=== PATIENT | female | born 1990 | race Caucasian/White ===

== ENCOUNTER 2018-06-27 10:20 | Emergency (ER) | payer OTHER, SELFPAY ==
--- NOTE | 2018-06-27 11:20 | RAD REPORT ---
EXAM DESCRIPTION: RAD - Elbow Left 3 View - 06/27/2018 11:15 am CLINICAL HISTORY: PAIN COMPARISON: No comparisons FINDINGS: Fracture of the left radial neck is seen with anterior and posterior fat pad elevation. No dislocation is seen.
[2018-06-27] MEDS ORDERED: ONDANSETRON 4 MG (ODT) TAB ONE (11:40)
[2018-06-27] MEDS ORDERED: MEPERIDINE HCL 25 MG/0.5 ML ONE (11:40)
--- NOTE | 2018-06-27 11:47 | EDPHYS ---
Physician Documentation [facility] Name: Gwen Daíz Age: 28 yrs Sex: Female : 1990 Arrival Date: 06/27/2018 Time: 10:25 Bed 16 Private MD: None, None ED Physician Víctor Tillman HPI: 06/27 11:14 This 28 yrs old Female presents to ER via Ambulatory with complaints of Arm jr8 Injury. 11:14 The patient or guardian complains of decreased range of motion, injury, pain. The jr8 complaints affect the left elbow. Onset: The symptoms/episode began/occurred acutely, yesterday. Treatment prior to arrival includes: no previous treatment. Modifying factors: The symptoms are alleviated by remaining still, the symptoms are aggravated by movement. Associated signs and symptoms: The patient has no apparent associated signs or symptoms. Severity of symptoms: At their worst the symptoms were moderate, in the emergency department the symptoms are unchanged. The patient has not experienced similar symptoms in the past. The patient has not recently seen a physician. Patient was rough housing with friends last night. Stated that her arm was extended and someone landed on it hyperextending it more. [place] popping sensation. Since then cannot move it well and is in pain . 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 - Social history:: Smoking status: Patient uses tobacco products, denies chronic smoking, but will smoke occasionally. - Ebola Screening: : Patient negative for fever greater than or equal to 101.5 degrees Fahrenheit, and additional compatible Ebola Virus Disease symptoms Patient denies exposure to infectious person Patient denies travel to an Ebola-affected area in the 21 days before illness onset No symptoms or risks identified at this time. ROS: 11:14 Constitutional: Negative for fever, chills, and weight loss. jr8 11:14 MS/extremity: Positive for decreased range of motion, pain, swelling, tenderness, of the left elbow. 11:14 All other systems are negative. Exam: 11:14 Cardiovascular: Regular rate and rhythm with a normal S1 and S2. No gallops, murmurs, jr8 or rubs. Normal PMI, no JVD. No pulse deficits. Respiratory: Lungs have equal breath sounds bilaterally, clear to auscultation and percussion. No rales, rhonchi or wheezes noted. No increased work of breathing, no retractions or nasal flaring. Abdomen/GI: Soft, non-tender, with normal bowel sounds. No distension or tympany. No guarding or rebound. No evidence of tenderness throughout. Back: No spinal tenderness. No costovertebral tenderness. Full range of motion. Skin: Warm, dry with normal turgor. Normal color with no rashes, no lesions, and no evidence of cellulitis. Neuro: Awake and alert, GCS 15, oriented to person, place, time, and situation. Cranial nerves II-XII grossly intact. Motor strength 5/5 in all extremities. Sensory grossly intact. Cerebellar exam normal. Normal gait. 11:14 Musculoskeletal/extremity: Extremities: grossly normal except: noted in the left elbow: decreased ROM, pain, swelling, tenderness, Circulation is intact in all extremities. Sensation intact. Vital Signs: 10:43 BP 122 / 78; Pulse 84; Resp 16; Pulse Ox 100% on R/A; Weight 92.99 kg; Height 5 ft. 5 iw in. (165.10 cm); Pain 7/10; 11:58 BP 120 / 75; Pulse 85; Resp 18; Pulse Ox 100% on R/A; hj 10:43 Body Mass Index 34.11 (92.99 kg, 165.10 cm) iw Procedures: 11:44 Splinting: Splint applied to left elbow using Orthoglass splint, sling, applied by [employer] tech. Examined by me, post splint application: neurovascular intact, 2+ distal pulses palpable, brisk capillary refill noted, Patient tolerated well. MDM: 10:30 Patient medically screened. [facility] 11:44 Data reviewed: vital signs, nurses notes, radiologic studies, plain films, and as a [facility] result, I will discharge patient. Data interpreted: Pulse oximetry: on room air is 100 %. Interpretation: normal. Counseling: I had a detailed discussion with the patient and/or guardian regarding: the historical points, exam findings, and any diagnostic results supporting the discharge/admit diagnosis, radiology results, the need for outpatient follow up, a orthopedic surgeon, to return to the emergency department if symptoms worsen or persist or if there are any questions or concerns that arise at home. 06/27 10:50 Order name: XRAY Elbow LEFT 3 view; Complete Time: 11:23 jr8 06/27 11:29 Order name: Posterior Elbow Splint; Complete Time: 11:49 hj 06/27 11:58 Order name: Sling; Complete Time: 11:59 5 Administered Medications: 11:29 Drug: Demerol 25 mg Route: IM; Site: right deltoid; hj 11:49 Follow up: Response: No adverse reaction; Pain is decreased hj 11:29 Drug: Zofran 4 mg Route: PO; hj 11:49 Follow up: Response: No adverse reaction Disposition: 06/28 07:05 Co-signature as Attending Physician, Víctor Tillman MD I agree with the assessment and summer plan of care. Disposition: 06/27/18 11:47 Discharged to Home. Impression: Displaced fracture of head of left radius. - Condition is Stable. - Discharge Instructions: Radial Fracture. - Prescriptions for Ultracet 37.5- 325 mg Oral Tablet - take 2 tablet by ORAL route every 6 hours - for up to 5 days; do not exceed 8 tablets per day.; 30 tablet. Ibuprofen 800 mg Oral Tablet - take 1 tablet by ORAL route every 12 hours As needed take with food; 20 tablet. - Medication Reconciliation Form, Thank You Letter, Antibiotic Education, Prescription Opioid Use form. - Follow up: Messi Trotter MD; When: 5 - 6 days; Reason: Recheck today's complaints, Continuance of care, Re-evaluation by your physician. - Problem is new. - Symptoms have improved. Signatures: Dispatcher [employer] Víctor Scott MD MD cha Williams, Irene, RN RN iw Roszak, Josh, PA PA jr8 Dick Norton RN RN hj Martinez, Maria 5 Corrections: (The following items were deleted from the chart) 06/27 11:59 11:47 06/27/2018 11:47 Discharged to Home. Impression: Displaced fracture of head of hj left radius. Condition is Stable. Forms are Medication Reconciliation Form, Thank You Letter, Antibiotic Education, Prescription Opioid Use. Follow up: Messi Trotter; When: 5 - 6 days; Reason: Recheck today's complaints, Continuance of care, Re-evaluation by your physician. Problem is new. Symptoms have improved. jr8
--- NOTE | 2018-06-27 11:47 | ER ---
Nurse's Notes [facility] Name: Gwen Díaz Age: 28 yrs Sex: Female : 1990 Arrival Date: 06/27/2018 Time: 10:25 Bed 16 Private MD: None, None Diagnosis: Displaced fracture of head of left radius Presentation: 06/27 10:34 Presenting complaint: Presenting complaint: Patient states: yesterday someone fell onto iw her left arm, c/o pain to LFA. 10:42 Transition of care: patient was not received from another setting of care. Onset of iw symptoms was June 26, 2018. Risk Assessment: Do you want to hurt yourself or someone else? Patient reports no desire to harm self or others. Initial Sepsis Screen: Does the patient meet any 2 criteria? No. Patient's initial sepsis screen is negative. Does the patient have a suspected source of infection? No. Patient's initial sepsis screen is negative. Care prior to arrival: None. 10:42 Method Of Arrival: Ambulatory iw 10:42 Acuity: JUAN 4 Triage Assessment: 10:44 General: Appears in no apparent distress. uncomfortable, Behavior is calm, cooperative, hj appropriate for age. Pain: Complains of pain in left arm. Musculoskeletal: Reports pain in left arm. 10:44 Injury Description: fall. 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 - Social history:: Smoking status: Patient uses tobacco products, denies chronic smoking, but will smoke occasionally. - Ebola Screening: : Patient negative for fever greater than or equal to 101.5 degrees Fahrenheit, and additional compatible Ebola Virus Disease symptoms Patient denies exposure to infectious person Patient denies travel to an Ebola-affected area in the 21 days before illness onset No symptoms or risks identified at this time. Screenin:44 Abuse screen: Denies threats or abuse. Denies injuries from another. Nutritional hj screening: No deficits noted. Tuberculosis screening: No symptoms or risk factors identified. Fall Risk None identified. Vital Signs: 10:43 BP 122 / 78; Pulse 84; Resp 16; Pulse Ox 100% on R/A; Weight 92.99 kg; Height 5 ft. 5 iw in. (165.10 cm); Pain 7/10; 11:58 BP 120 / 75; Pulse 85; Resp 18; Pulse Ox 100% on R/A; hj 10:43 Body Mass Index 34.11 (92.99 kg, 165.10 cm) ED Course: 10:25 Patient arrived in ED. dl4 10:25 None, None is Private Physician. dl4 10:27 Omar Reyes PA is PHCP. jr8 10:27 Víctor Tillman MD is Attending Physician. jr8 10:37 Dick Norton RN is Primary Nurse. hj 10:43 Triage completed. iw 10:44 Arm band placed on. iw 10:44 Patient has correct armband on for positive identification. Bed in low position. Call hj light in reach. Side rails up X 1. 11:12 X-ray completed. Portable x-ray completed in exam room. Patient tolerated procedure sg4 well. 11:16 XRAY Elbow LEFT 3 view In Process Unspecified. EDMS 11:45 Messi Trotter MD is Referral Physician. jr8 11:57 No provider procedures requiring assistance completed. Patient did not have IV access hj during this emergency room visit. 11:58 Orthoglass splint: posterior long arm splint applied to the left arm. Sling applied to mh5 left arm. Administered Medications: 11:29 Drug: Demerol 25 mg Route: IM; Site: right deltoid; hj 11:49 Follow up: Response: No adverse reaction; Pain is decreased hj 11:29 Drug: Zofran 4 mg Route: PO; hj 11:49 Follow up: Response: No adverse reaction hj Outcome: 11:47 Discharge ordered by . jr8 11:57 Discharged to home ambulatory, with family, with L elbow posterior splint and arm sling hj 11:57 Condition: stable 11:57 Instructed on discharge instructions, follow up and referral plans. medication usage, splint and sling care Demonstrated understanding of instructions, follow-up care, medications, splint care, Prescriptions given X 2. 11:59 Patient left the ED. hj Signatures: Dispatcher [employer] EDMS Taylor Desouza RN RN Omar Reyes PA PA jr8 Joaquin, Dick, RN RN Sandra Becerril 5 Kelsi Rodriguez sg4 Shai Vyas dl4 Corrections: (The following items were deleted from the chart) 10:43 10:34 Presenting complaint: iw iw
[2018-06-27 12:04] VITALS: O2SAT 100
[2018-06-27 12:05] VITALS: BP 120/75
== END 2018-06-27 11:59 | disposition home or self-care (01) ==
LOC: ER 10:20
PROC: 2W39X1Z Immobilization of Left Upper Extremity using Splint (ICD-10-PCS; principal; 2018-06-27)
DX: S52.122A Displaced fracture of head of left radius, initial encounter for closed fracture (principal); X50.9XXA Other and unspecified overexertion or strenuous movements or postures, initial encounter; Z72.0 Tobacco use
CPT/HCPCS: 96372; 99284; J2175